=== PATIENT | male | born 1975 | race Caucasian/White ===

== ENCOUNTER 2025-03-04 06:14 | Emergency (ER) | payer MEDICAID ==
--- NOTE | 2025-03-04 06:31 | ERPHSYRPT ---
- History of Present Illness Source: patient Exam Limitations: no limitations <JUSTIN ACE - Last Filed: 03/04/25 07:00> <BALTA LINARES - Last Filed: 03/04/25 15:08> - History of Present Illness Time Seen by Provider: 03/04/25 06:15 Physician History: Pt was brought in by police who stated pt has had hallucinations of people in the back room of the house in which he is currently residing. Pt states there are people at [facility] and [employer] in [place] who are threatening his life. Pt admits to snorting methamphetamine yesterday; states he has not used methamphetamine for 5 months and started up again 2 days ago. Pt denies chest pain, shortness of air, abdominal pain, suicidal ideation; admits to wanting to harm the above people if they come after him. (JUSTIN ACE) Allergies/Adverse Reactions: No Known Drug Allergies Allergy (Unverified 03/04/25 06:22) Home Medications: No Reportable Medications [No Reported Medications] 03/04/25 [History] - Review of Systems Constitutional: No Fever, No Chills Ears, Nose, & Throat: No Throat Pain Respiratory: No Dyspnea Cardiac: No Chest Pain Abdominal/Gastrointestinal: No Abdominal Pain, No Nausea, No Vomiting, No Diarrhea Genitourinary Symptoms: No Dysuria Neurological: No Headache Psychological: Hallucinations <JUSTIN ACE - Last Filed: 03/04/25 07:00> - Physical Exam General Appearance: alert Eyes, Ears, Nose, Throat Exam: pharynx normal Neck Exam: normal inspection Respiratory Exam: lungs clear, airway intact Cardiovascular Exam: normal heart sounds Gastrointestinal/Abdominal Exam: normal bowel sounds Extremities Exam: No edema Current Suicidality: denies suicide plan Neurological Exam: alert, anxious, motor strength (good) Behavior/Eye Contact/Speech: alert & cooperative, normal speech Thoughts/Hallucinations: visual hallucinations Skin Exam: warm, dry <JUSTIN ACE - Last Filed: 03/04/25 07:00> - Nursing Vital Signs Nursing Vital Signs: Initial Vital Signs Temperature 98.0 F 03/04/25 06:25 Pulse Rate 83 03/04/25 06:25 Respiratory Rate 18 03/04/25 06:25 Blood Pressure 133/86 03/04/25 06:25 O2 Sat by Pulse Oximetry 98 04/07/25 06:25 Pain Scale Pain Intensity 0 - Course EKG Interpreted by Me: RATE (78), Sinus Rhythm, Left Morris Deviation, Other (QTc = 477) <JUSTIN ACE - Last Filed: 03/04/25 07:00> Ordered Tests: Active Orders 24 hr Category Date Time Status EKG-ER Only STAT Care 03/04/25 07:07 Active Psychiatric Consult STAT Cons 03/04/25 06:22 Active ACETAMINOPHEN Stat Lab 03/04/25 06:51 Completed CBC W DIFF Stat Lab 03/04/25 06:51 Completed CMP Stat Lab 03/04/25 06:51 Completed CULTURE,URINE Stat Lab 03/04/25 06:23 Received ETHYL ALCOHOL Stat Lab 03/04/25 06:51 Completed SALICYLATE Stat Lab 03/04/25 06:51 Completed Urine Triage Profile Stat Lab 03/04/25 10:05 Completed Lab/Rad Data: Laboratory Result Diagrams 03/04/25 06:51 03/04/25 06:51 Laboratory Results 03/04/25 03/04/25 03/04/25 Range/Units 10:05 06:51 06:51 WBC 9.2 H (4.23-9.07) x10^3/uL RBC 4.59 L (4.63-6.08) x10^6/uL Hgb 14.1 (13.7-17.5) g/dL Hct 41.6 (40.1-51.0) % MCV 90.6 (79.0-92.2) fL MCH 30.7 (25.7-32.2) pg MCHC 33.9 (32.3-36.5) g/dL RDW 13.2 (11.6-14.4) % Plt Count 206 (163-337) x10^3/uL MPV 9.8 (9.4-12.4) fL Gran % 67.5 (34.0-67.9) % Immature Gran % (Auto) 0.2 (0.001-0.429) % Nucleat RBC Rel Count 0.0 (0.00-0.2) % Eos # (Auto) 0.18 (0.04-0.54) x10^3/uL Immature Gran # (Auto) 0.02 (0.001-0.031) x10^3u/L Absolute Lymphs (auto) 1.87 (1.32-3.57) x10^3/uL Absolute Monos (auto) 0.83 H (0.30-0.82) x10^3/uL Absolute Nucleated RBC 0.00 (0.00-0.012) x10^3u/L Lymphocytes % 20.4 L (21.8-53.1) % Monocytes % 9.0 (5.3-12.2) % Eosinophils % 2.0 (0.8-7.0) % Basophils % 0.9 (0.2-1.2) % Absolute Granulocytes 6.20 H (1.78-5.38) x10^3/uL Basophils # 0.08 (0.01-0.08) x10^3/uL Sodium 141 (135-145) mmol/L Potassium 3.7 (3.5-5.1) mmol/L Chloride 104 (98-107) mmol/L Carbon Dioxide 28 (22-30) mmol/L Anion Gap 12.7 (5-15) MEQ/L BUN 20 (9-20) mg/dL Creatinine 0.88 (0.66-1.25) mg/dL Estimated GFR 106.7 ML/MIN Glucose 107 H (74-106) mg/dL Calcium 9.1 (8.4-10.2) mg/dL Total Bilirubin 1.60 H (0.2-1.3) mg/dL AST 45 (17-59) U/L ALT 38 (0-50) U/L Alkaline Phosphatase 66 (38-126) U/L Serum Total Protein 6.5 (6.3-8.2) g/dL Albumin 3.9 (3.5-5.0) g/dL Urine Color (YELLOW) Urine Appearance (CLEAR) Urine pH (5-6) Ur Specific Caldwell (1.005-1.025) POC Urine Protein Conf (Negative) Urine Ketones (NEGATIVE) Urine Nitrite (NEGATIVE) Urine Bilirubin (NEGATIVE) Urine Urobilinogen (0-1) mg/dL Urine Leukocytes (NEGATIVE) Urine RBC (0-5) Flaco/ul Urine Microscopic RBC (0-5) /HPF Urine Microscopic WBC (0-5) /HPF Ur Epithelial Cells (None Seen) /HPF Urine Bacteria (None Seen) /HPF Urine Mucus (NEGATIVE) /HPF Urine Culture Reflexed (NO) Urine Glucose (NEGATIVE) mg/dL Salicylates < 1.0 L (2-20) mg/dL Urine Opiates Level NEGATIVE (NEGATIVE) Ur Methadone NEGATIVE (NEGATIVE) Acetaminophen < 10 L (10-30) ug/ml Urine Barbiturates NEGATIVE (NEGATIVE) Ur Phencyclidine (PCP) NEGATIVE (NEGATIVE) Urine Amphetamine POSITIVE A (NEGATIVE) U Benzodiazepine Level NEGATIVE (NEGATIVE) Urine Cocaine NEGATIVE (NEGATIVE) Urine Marijuana (THC) NEGATIVE (NEGATIVE) Ethyl Alcohol < 10 (0-10) mg/dL 03/04/25 Range/Units 06:23 WBC (4.23-9.07) x10^3/uL RBC (4.63-6.08) x10^6/uL Hgb (13.7-17.5) g/dL Hct (40.1-51.0) % MCV (79.0-92.2) fL MCH (25.7-32.2) pg MCHC (32.3-36.5) g/dL RDW (11.6-14.4) % Plt Count (163-337) x10^3/uL MPV (9.4-12.4) fL Gran % (34.0-67.9) % Immature Gran % (Auto) (0.001-0.429) % Nucleat RBC Rel Count (0.00-0.2) % Eos # (Auto) (0.04-0.54) x10^3/uL Immature Gran # (Auto) (0.001-0.031) x10^3u/L Absolute Lymphs (auto) (1.32-3.57) x10^3/uL Absolute Monos (auto) (0.30-0.82) x10^3/uL Absolute Nucleated RBC (0.00-0.012) x10^3u/L Lymphocytes % (21.8-53.1) % Monocytes % (5.3-12.2) % Eosinophils % (0.8-7.0) % Basophils % (0.2-1.2) % Absolute Granulocytes (1.78-5.38) x10^3/uL Basophils # (0.01-0.08) x10^3/uL Sodium (135-145) mmol/L Potassium (3.5-5.1) mmol/L Chloride (98-107) mmol/L Carbon Dioxide (22-30) mmol/L Anion Gap (5-15) MEQ/L BUN (9-20) mg/dL Creatinine (0.66-1.25) mg/dL Estimated GFR ML/MIN Glucose (74-106) mg/dL Calcium (8.4-10.2) mg/dL Total Bilirubin (0.2-1.3) mg/dL AST (17-59) U/L ALT (0-50) U/L Alkaline Phosphatase (38-126) U/L Serum Total Protein (6.3-8.2) g/dL Albumin (3.5-5.0) g/dL Urine Color BENNY (YELLOW) Urine Appearance CLEAR (CLEAR) Urine pH 5.0 (5-6) Ur Specific Caldwell >=1.030 A (1.005-1.025) POC Urine Protein Conf NEGATIVE (Negative) Urine Ketones SMALL-15 A (NEGATIVE) Urine Nitrite NEGATIVE (NEGATIVE) Urine Bilirubin SMALL A (NEGATIVE) Urine Urobilinogen 1 A (0-1) mg/dL Urine Leukocytes NEGATIVE (NEGATIVE) Urine RBC NEGATIVE (0-5) Flaco/ul Urine Microscopic RBC 0-2 (0-5) /HPF Urine Microscopic WBC 3-5 (0-5) /HPF Ur Epithelial Cells Few (None Seen) /HPF Urine Bacteria Few A (None Seen) /HPF Urine Mucus Moderate A (NEGATIVE) /HPF Urine Culture Reflexed YES (NO) Urine Glucose NEGATIVE (NEGATIVE) mg/dL Salicylates (2-20) mg/dL Urine Opiates Level (NEGATIVE) Ur Methadone (NEGATIVE) Acetaminophen (10-30) ug/ml Urine Barbiturates (NEGATIVE) Ur Phencyclidine (PCP) (NEGATIVE) Urine Amphetamine (NEGATIVE) U Benzodiazepine Level (NEGATIVE) Urine Cocaine (NEGATIVE) Urine Marijuana (THC) (NEGATIVE) Ethyl Alcohol (0-10) mg/dL - Progress Counseled pt/family regarding: lab results, diagnosis, need for follow-up <BALTA LINARES - Last Filed: 03/04/25 15:08> - Progress Progress Note: 03/04/25 15:06 [facility] evaluated this patient. They are sending him home with a safety plan. (BALTA LINARES) Medical Desision Making - Discussion of managment Care discussed with:: specialist ([facility] services) Reviewed:: Test results Agreed on:: Treatment plan, need for follow-up Will see patient: In office - Diagnostic Testing Diagnostic test were ordered, analyzed, and reviewed by me: Yes - Risk of complications Low Risk: Low risk of morbidity from additional dx testing or treatment <BALTA LINARES - Last Filed: 03/04/25 15:08> - Departure Critical Care Time: No <JUSTIN ACE - Last Filed: 03/04/25 07:00> <BALTA LINARES - Last Filed: 03/04/25 15:08> - Departure Clinical Impression: Hallucinations, Drug induced hallucinations Condition: Stable Additional Instructions: Follow the safety plan you agreed to with [facility] health services. Follow-up with their office at your agreed date and time
[2025-03-04 06:45] VITALS: TEMP 98
[2025-03-04 06:53] LABS: BASOPHIL % 0.9 % (0.2-1.2); Basophil (Absolute #) 0.08 x10^3/uL (0.01-0.08); Eosinophil (Absolute #) 0.18 x10^3/uL (0.04-0.54); Hematocrit 41.6 % (40.1-51.0); Hemoglobin 14.1 g/dL (13.7-17.5); IMMATURE GRAN # 0.02 x10^3u/L (0.001-0.031); IMMATURE GRAN % 0.2 % (0.001-0.429); Lymphocyte (Absolute #) 1.87 x10^3/uL (1.32-3.57); Lymphocytes % 20.4 % (21.8-53.1); Mean Cell Volume 90.6 fL (79.0-92.2); Mean Corpuscular Hemoglobin 30.7 pg (25.7-32.2); Mean Corpuscular Hgb Concent. 33.9 g/dL (32.3-36.5); Mean Platelet Volume 9.8 fL (9.4-12.4); Monocyte (Absolute #) 0.83 x10^3/uL (0.30-0.82); Neutrophil % 67.5 % (34.0-67.9); Platelet Count 206 x10^3/uL (163-337); Red Blood Count 4.59 x10^6/uL (4.63-6.08); Red Cell Distribution Width 13.2 % (11.6-14.4); White Blood Count 9.2 x10^3/uL (4.23-9.07)
[2025-03-04 07:07] LABS: ACETAMINOPHEN < 10 ug/ml (10-30); ALBUMIN 3.9 g/dL (3.5-5.0); ALKALINE PHOSPHATASE 66 U/L (38-126); ANION GAP 12.7 MEQ/L (5-15); BLOOD UREA NITROGEN 20 mg/dL (9-20); CHLORIDE 104 mmol/L (98-107); Calcium 9.1 mg/dL (8.4-10.2); Carbon Dioxide 28 mmol/L (22-30); Creatinine 1 0.88 mg/dL (0.66-1.25); EST GLOMERULAR FILTRATION RATE 106.7 ML/MIN; ETHYL ALCOHOL < 10 mg/dL (0-10); Glucose 107 mg/dL (74-106); Potassium 3.7 mmol/L (3.5-5.1); SALICYLATE < 1.0 mg/dL (2-20); SGOT/AST 45 U/L (17-59); SGPT/ALT 38 U/L (0-50); SODIUM 141 mmol/L (135-145); Total Protein 6.5 g/dL (6.3-8.2)
[2025-03-04 10:19] LABS: Barbiturate,Urine NEGATIVE (NEGATIVE); Benzodiazepine,Urine NEGATIVE (NEGATIVE); Cocaine,Urine NEGATIVE (NEGATIVE); Methadone,Urine NEGATIVE (NEGATIVE); Opiate,Urine NEGATIVE (NEGATIVE); PCP,Urine NEGATIVE (NEGATIVE); THC,Urine NEGATIVE (NEGATIVE)
[2025-03-04 10:36] LABS: Appearance CLEAR (CLEAR); Bilirubin SMALL (NEGATIVE); Glucose NEGATIVE (NEGATIVE); Ketones SMALL-15 (NEGATIVE); Specific Gravity >=1.030 (1.005-1.025)
[2025-03-04 10:37] LABS: Bacteria Few /HPF (None Seen); Epithelial Cells Few /HPF (None Seen); Mucus Moderate /HPF (NEGATIVE); Nitrite NEGATIVE (NEGATIVE); Protein,Urine Dip NEGATIVE (Negative); RBC 0-2 /HPF (0-5); RBC NEGATIVE Ery/ul (0-5); Urobilinogen 1 mg/dL (0-1)
[2025-03-04 11:01] LABS: Amphetamine,Urine POSITIVE (NEGATIVE)
[2025-03-04 14:28] VITALS: O2SAT 97
[2025-03-04 15:21] VITALS: BP 102/75; PULSE 63; RESP 14
== END 2025-03-04 15:22 | disposition home or self-care (01) ==
LOC: ED 06:14
DX: F15.951 Other stimulant use, unspecified with stimulant-induced psychotic disorder with hallucinations (principal)
CPT/HCPCS: 36415; 80053; 80143; 80179; 80307; 81015; 82077; 85025; 87086; 93005; 99284; Q3014; 90791